=== PATIENT | male | born 1980 | race Caucasian/White ===

== ENCOUNTER 2023-08-09 08:33 | Emergency (ER) | payer OTHER, SELFPAY ==
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
[2023-08-09 08:58] VITALS: BP 144/91; PULSE 78; RESP 16; TEMP 36.9; O2SAT 97; BMI 25.0
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
[2023-08-09] MEDS: IBUPROFEN 400 MG TABLET 800 MG PO (09:08)
[2023-08-09] MEDS: ACETAMINOPHEN 325 MG TABLET 975 MG PO (09:08)
[2023-08-09 10:11] VITALS: BP 138/78; PULSE 74; RESP 16; O2SAT 97
== END 2023-08-09 10:11 | disposition home or self-care (01) ==
PROVIDERS: Emergency Provider Emergency Medicine; Family Provider Family Medicine; PCP Family Medicine
DX: M54.50 Low back pain, unspecified (principal); V89.2XXA Person injured in unspecified motor-vehicle accident, traffic, initial encounter
CPT/HCPCS: 72100; 99283

== ENCOUNTER → 2024-07-24 07:51 | Outpatient (CLI) | payer OTHER, SELFPAY ==
[2024-07-24 08:52] LABS: Influenza A - CEPHEID Flu A NEGATIVE (NEGATIVE); Influenza B - CEPHEID Flu B POSITIVE (NEGATIVE); Respiratory Syncytial Virus Negative (Negative)
[2024-07-24 09:11] LABS: COVID-19 CEPHEID 4-PLEX PCR Negative (Negative)
== END ==
PROVIDERS: Family Provider Family Medicine; Visit Provider Physician Assistant
DX: R05.1 Acute cough (principal); J02.9 Acute pharyngitis, unspecified
CPT/HCPCS: 0241U; 87070; 87077; 87147